=== PATIENT | male | born 1965 | race African-American/Black ===

== ENCOUNTER 2018-05-03 12:08 | Inpatient (IN) | payer OTHER ==
[~2018-05-03] VITALS: Ht 170.2 cm; Wt 105.4 kg
[~2018-05-03 12:08] MED LIST: ALBU2TAB4 PO; AMLO5TAB13 PO; ASPI81TA27 PO; DILT60TA27 PO; INSLANTI SC; IPRA1SOL3 IN; LACT10SO3 PO; LEVO500T21 PO; LISI40TA PO; METF-370 PO; OMEP20TA PO; PRE1T PO; TAMS0.4C36 PO
[2018-05-03] MEDS ORDERED: ALBUTEROL SULF 2.5 MG/0.5ML(0.5%) NEB SOLN HHN ONE (12:30)
[2018-05-03] MEDS ORDERED: methylPREDNISolone SOD SUCC 125 MG/2 ML VL IV ONE (12:30)
[2018-05-03] MEDS ORDERED: IPRATROPIUM BROM 0.5 MG/2.5ML INH SOL HHN ONE (12:30)
[2018-05-03 12:47] LABS: Basophils # (auto) 0.1 uL; Basophils % (auto) 0.8 % (0.0-2.0); Eosinophils # (auto) 0.2 uL; Eosinophils % (auto) 2.9 % (0.0-7.0); Hematocrit 41.9 % (41.0-53.0); Hemoglobin 14.7 g/dL (13.5-17.5); Lymphocytes # (auto) 1.1 uL; Lymphocytes % (auto) 17.9 % (10.0-50.0); Mean Corpuscular Hemoglobin 31.5 pg (28.0-32.0); Mean Corpuscular Hgb Conc. 35.1 g/dL (32.0-36.0); Mean Corpuscular Volume 89.7 fL (80.0-100.0); Monocytes # (auto) 0.6 uL; Monocytes % (auto) 8.9 % (0.0-12.0); Neutrophils # (auto) 4.3 uL; Neutrophils % (auto) 69.5 % (37.0-80.0); Nucleated Red Blood Cells % 0.1 %; Platelet Count (auto) 185 10^3/uL (140-450); Red Blood Cells 4.67 10^6/uL (4.5-5.90); White Blood Cell 6.2 10^3/uL (4.4-10.8)
[2018-05-03 13:35] LABS: Alanine Aminotransferase 15 U/L (16-61); Albumin 3.7 g/dL (3.4-5.0); Alkaline Phosphatase 61 U/L (45-117); Anion Gap 6 (5-15); Aspartate Aminotransferase 10 U/L (15-37); BUN/Creatinine Ratio 14.4; Bilirubin, Total 0.5 mg/dL (0.2-1.0); Blood Urea Nitrogen 16 mg/dL (7-18); Calcium 8.2 mg/dL (8.5-10.1); Carbon Dioxide 29 mmol/L (21-32); Chloride 107 mmol/L (98-107); GFR African American 90 mL/min; GFR Non-African American 74 mL/min; Glucose 88 mg/dL (74-106); Magnesium 2.5 mg/dL (1.6-2.6); Sodium 142 mmol/L (136-145); Total Protein 6.5 g/dL (6.4-8.2)
[2018-05-03] MEDS ORDERED: cloNIDine HCL 0.1 MG TAB PO PRN (15:45)
[2018-05-03] MEDS ORDERED: LACTULOSE 20Gm/30ML SOLN PO PRN (16:15)
[2018-05-03] MEDS ORDERED: DEXTROSE (50%) 50ML SYRG IV PRN (16:15)
[2018-05-03] MEDS: ONDANSETRON HCL 4 MG/2 ML VIAL IV PRN (17:16)
[2018-05-03] MEDS: MORPHINE SULF INJ 2 MG/ML SYRINGE 1ML IV PRN (17:16)
[2018-05-03] MEDS: ACCU-CHEK COMFORT CURVE STRIP VI SCH ×2 (17:25→23:23)
[2018-05-03] MEDS: InsuLIN REG 1unit/0.01ml Soln (100units/ml) SC SCH ×2 (17:31→23:23)
[2018-05-03] MEDS ORDERED: IPRATROPIUM BROM 0.5 MG/2.5ML INH SOL NEB ONE (18:00)
[2018-05-03] MEDS: SOTALOL HCL 80 MG TAB PO SCH (18:21)
[2018-05-03] MEDS: metFORMIN HYDROCHLORIDE 500 MG TAB PO SCH (18:21)
[2018-05-03] MEDS: ALBUTEROL SULF 2.5 MG/0.5ML(0.5%) NEB SOLN NEB SCH (19:12)
[2018-05-03 19:51] VITALS: BP 130/98
[2018-05-03 20:29] VITALS: BP 132/84
[2018-05-03] MEDS: methylPREDNISolone SOD SUCC 125 MG/2 ML VL IV SCH (22:15)
[2018-05-03] MEDS: HYDROcodone-ACET 10/325MG TAB PO PRN (23:34)
[2018-05-04] MEDS: ALBUTEROL SULF 2.5 MG/0.5ML(0.5%) NEB SOLN NEB SCH ×4 (01:52→19:02)
[2018-05-04 05:17] VITALS: BP 131/79
[2018-05-04] MEDS ORDERED: INSREG3 IV (06:18)
[2018-05-04] MEDS ORDERED: INSUINJ2 SC (06:18)
[2018-05-04] MEDS ORDERED: TAM04C PO (06:18)
[2018-05-04] MEDS ORDERED: SOTA80TA PO (06:19)
[2018-05-04] MEDS: InsuLIN REG 1unit/0.01ml Soln (100units/ml) SC SCH ×3 (07:09→17:00)
[2018-05-04] MEDS: amLODIPine BESYLATE 5 MG TAB PO SCH (07:09)
[2018-05-04] MEDS: INSULIN LANTUS (GLARGINE) 1 /0.01ml (100units/ml) SC SCH (07:09)
[2018-05-04] MEDS: ACCU-CHEK COMFORT CURVE STRIP VI SCH ×3 (07:10→17:00)
[2018-05-04] MEDS: TAMSULOSIN HYDROCHLORIDE 0.4 MG CAP PO SCH (08:44)
[2018-05-04] MEDS: ASPirin-EC 81 mg tab PO SCH (08:45)
[2018-05-04] MEDS: SOTALOL HCL 80 MG TAB PO SCH ×2 (08:45→17:32)
[2018-05-04] MEDS: metFORMIN HYDROCHLORIDE 500 MG TAB PO SCH ×2 (08:46→17:31)
[2018-05-04 09:00] VITALS: BP 126/77
[2018-05-04] MEDS: LISINOPRIL 20 MG TAB PO SCH (10:16)
[2018-05-04] MEDS: methylPREDNISolone SOD SUCC 125 MG/2 ML VL IV SCH (10:17)
[2018-05-04 13:00] VITALS: BP 129/75
[2018-05-04 17:00] VITALS: BP 128/76
[2018-05-04] MEDS: BUDESONIDE (INHALATION) 0.5 MG/2 ML NEB NEB SCH (19:02)
[2018-05-04] MEDS: HYDROcodone-ACET 10/325MG TAB PO PRN (20:38)
[2018-05-04 22:00] VITALS: BP 120/70
[2018-05-05] MEDS: methylPREDNISolone SOD SUCC 125 MG/2 ML VL IV SCH ×3 (00:10→22:06)
[2018-05-05] MEDS: ACCU-CHEK COMFORT CURVE STRIP VI SCH ×5 (00:11→22:07)
[2018-05-05] MEDS: InsuLIN REG 1unit/0.01ml Soln (100units/ml) SC SCH ×5 (00:11→22:07)
[2018-05-05] MEDS: ALBUTEROL SULF 2.5 MG/0.5ML(0.5%) NEB SOLN NEB SCH ×5 (00:32→23:56)
[2018-05-05 05:00] VITALS: BP 132/87
[2018-05-05] MEDS: BUDESONIDE (INHALATION) 0.5 MG/2 ML NEB NEB SCH ×2 (06:37→18:19)
[2018-05-05] MEDS: INSULIN LANTUS (GLARGINE) 1 /0.01ml (100units/ml) SC SCH (06:41)
[2018-05-05] MEDS: amLODIPine BESYLATE 5 MG TAB PO SCH (06:42)
[2018-05-05] MEDS: TAMSULOSIN HYDROCHLORIDE 0.4 MG CAP PO SCH (08:41)
[2018-05-05] MEDS: ASPirin-EC 81 mg tab PO SCH (08:41)
[2018-05-05] MEDS: metFORMIN HYDROCHLORIDE 500 MG TAB PO SCH ×2 (08:41→18:44)
[2018-05-05] MEDS: SOTALOL HCL 80 MG TAB PO SCH ×2 (08:42→18:49)
[2018-05-05 09:00] VITALS: BP 128/84
[2018-05-05] MEDS: LISINOPRIL 20 MG TAB PO SCH (10:24)
[2018-05-05 13:00] VITALS: BP 106/56
[2018-05-05] MEDS: NITROGLYCERIN 0.4 MG SL TAB SL PRN ×3 (16:38→16:56)
[2018-05-05 16:55] VITALS: BP 143/87
[2018-05-05] MEDS: MORPHINE SULF INJ 2 MG/ML SYRINGE 1ML IV PRN (17:08)
[2018-05-05 22:00] VITALS: BP 119/60
[2018-05-06 05:00] VITALS: BP 139/79
[2018-05-06] MEDS: ALBUTEROL SULF 2.5 MG/0.5ML(0.5%) NEB SOLN NEB SCH ×4 (06:02→19:15)
[2018-05-06] MEDS: BUDESONIDE (INHALATION) 0.5 MG/2 ML NEB NEB SCH ×2 (06:03→19:15)
[2018-05-06] MEDS: amLODIPine BESYLATE 5 MG TAB PO SCH (07:00)
[2018-05-06] MEDS: ACCU-CHEK COMFORT CURVE STRIP VI SCH ×4 (07:00→22:32)
[2018-05-06] MEDS: INSULIN LANTUS (GLARGINE) 1 /0.01ml (100units/ml) SC SCH (07:00)
[2018-05-06] MEDS: InsuLIN REG 1unit/0.01ml Soln (100units/ml) SC SCH ×4 (07:00→22:34)
[2018-05-06] MEDS: MEPERIDINE HCL (50 MG/ML) 1 ML VIAL IV PRN ×7 (07:33→18:26)
[2018-05-06] MEDS: SOTALOL HCL 80 MG TAB PO SCH ×2 (08:00→18:00)
[2018-05-06] MEDS: HYDROcodone-ACET 10/325MG TAB PO PRN ×3 (08:10→16:16)
[2018-05-06] MEDS ORDERED: ADENOSINE 84 MG in GIVE UN-DILUTED 0 ML IV ONE (08:30)
[2018-05-06 09:00] VITALS: BP 137/91
[2018-05-06 10:23] VITALS: BP 129/78
[2018-05-06] MEDS ORDERED: IPRATROPIUM BROM 0.5 MG/2.5ML INH SOL ONE (10:32)
[2018-05-06] MEDS: methylPREDNISolone SOD SUCC 125 MG/2 ML VL IV SCH ×2 (12:49→22:32)
[2018-05-06] MEDS: metFORMIN HYDROCHLORIDE 500 MG TAB PO SCH ×2 (12:49→18:00)
[2018-05-06] MEDS: TAMSULOSIN HYDROCHLORIDE 0.4 MG CAP PO SCH (12:50)
[2018-05-06] MEDS: ASPirin-EC 81 mg tab PO SCH (12:50)
[2018-05-06] MEDS: LISINOPRIL 20 MG TAB PO SCH (12:51)
[2018-05-06 13:00] VITALS: BP 148/94
[2018-05-06 17:00] VITALS: BP 129/85
[2018-05-06 22:00] VITALS: BP 140/73
[2018-05-07] MEDS: ALBUTEROL SULF 2.5 MG/0.5ML(0.5%) NEB SOLN NEB SCH ×5 (00:35→23:55)
[2018-05-07 05:00] VITALS: BP_SYST 106; BP_SYST 143; BP_DIAS 59; BP_DIAS 71
[2018-05-07 05:04] VITALS: BP 138/82
[2018-05-07 05:53] LABS: Hematocrit 42.6 % (41.0-53.0); Hemoglobin 14.9 g/dL (13.5-17.5); Mean Corpuscular Hemoglobin 31.3 pg (28.0-32.0); Mean Corpuscular Hgb Conc. 34.9 g/dL (32.0-36.0); Mean Corpuscular Volume 89.7 fL (80.0-100.0); Platelet Count (auto) 212 10^3/uL (140-450); Red Blood Cells 4.74 10^6/uL (4.5-5.90); Red Cell Distribution Width 13.7 % (11.8-14.3); White Blood Cell 13.1 10^3/uL (4.4-10.8)
[2018-05-07 05:57] LABS: Band Neutrophils % (manual) 0; Basophils % (manual) 0 (0.0-2.0); Blast Cells 0; Eosinophils % (manual) 0 (0-7); Metamyelocytes % 0; Myelocytes % 0; Promyelocytes % 0; Reactive Lymphocytes 0
[2018-05-07] MEDS: BUDESONIDE (INHALATION) 0.5 MG/2 ML NEB NEB SCH ×2 (06:00→18:12)
[2018-05-07] MEDS: INSULIN LANTUS (GLARGINE) 1 /0.01ml (100units/ml) SC SCH (06:23)
[2018-05-07] MEDS: amLODIPine BESYLATE 5 MG TAB PO SCH (06:23)
[2018-05-07] MEDS: InsuLIN REG 1unit/0.01ml Soln (100units/ml) SC SCH ×4 (06:23→22:00)
[2018-05-07] MEDS: ACCU-CHEK COMFORT CURVE STRIP VI SCH ×4 (06:24→21:51)
[2018-05-07 06:29] LABS: Anion Gap 3 (5-15); BUN/Creatinine Ratio 21.4; Blood Urea Nitrogen 24 mg/dL (7-18); Calcium 8.7 mg/dL (8.5-10.1); Carbon Dioxide 32 mmol/L (21-32); Chloride 103 mmol/L (98-107); GFR African American 89 mL/min; GFR Non-African American 73 mL/min; Glucose 162 mg/dL (74-106); Potassium 4.2 mmol/L (3.5-5.1); Sodium 138 mmol/L (136-145)
[2018-05-07] MEDS: HYDROcodone-ACET 10/325MG TAB PO PRN ×4 (06:30→18:01)
[2018-05-07 06:38] LABS: Lymphocytes % (manual) 3 (10.0-50.0); Monocytes % (manual) 4 (0-12)
[2018-05-07] MEDS: MEPERIDINE HCL (50 MG/ML) 1 ML VIAL IV PRN ×5 (07:20→18:47)
[2018-05-07] MEDS: SOTALOL HCL 80 MG TAB PO SCH ×2 (08:00→18:00)
[2018-05-07 08:59] VITALS: BP 139/83
[2018-05-07] MEDS: methylPREDNISolone SOD SUCC 125 MG/2 ML VL IV SCH ×2 (09:13→21:51)
[2018-05-07] MEDS: ASPirin-EC 81 mg tab PO SCH (09:14)
[2018-05-07] MEDS: TAMSULOSIN HYDROCHLORIDE 0.4 MG CAP PO SCH (09:14)
[2018-05-07] MEDS: metFORMIN HYDROCHLORIDE 500 MG TAB PO SCH ×2 (09:14→18:00)
[2018-05-07] MEDS: LISINOPRIL 20 MG TAB PO SCH (09:15)
[2018-05-07] MEDS: CARISOPRODOL 350 MG TAB PO PRN ×2 (10:45→18:01)
[2018-05-07 12:01] VITALS: BP 141/84
[2018-05-07 18:03] VITALS: BP 131/71
[2018-05-07 22:08] VITALS: BP 142/78
[2018-05-08] VITALS: BP 142/78
[2018-05-08 05:47] VITALS: BP 146/82
[2018-05-08] MEDS: ALBUTEROL SULF 2.5 MG/0.5ML(0.5%) NEB SOLN NEB SCH ×3 (06:06→18:25)
[2018-05-08] MEDS: BUDESONIDE (INHALATION) 0.5 MG/2 ML NEB NEB SCH ×2 (06:06→18:25)
[2018-05-08] MEDS: amLODIPine BESYLATE 5 MG TAB PO SCH ×2 (06:12→21:59)
[2018-05-08] MEDS: ACCU-CHEK COMFORT CURVE STRIP VI SCH ×4 (06:13→21:59)
[2018-05-08] MEDS: INSULIN LANTUS (GLARGINE) 1 /0.01ml (100units/ml) SC SCH ×2 (06:16→21:59)
[2018-05-08] MEDS: InsuLIN REG 1unit/0.01ml Soln (100units/ml) SC SCH ×5 (06:17→22:00)
[2018-05-08] MEDS: HYDROcodone-ACET 10/325MG TAB PO PRN ×2 (06:17→18:55)
[2018-05-08 08:00] VITALS: BP_SYST 146; BP_SYST 150; BP_DIAS 82; BP_DIAS 94
[2018-05-08] MEDS: SOTALOL HCL 80 MG TAB PO SCH ×2 (08:52→18:55)
[2018-05-08] MEDS: ASPirin-EC 81 mg tab PO SCH (08:52)
[2018-05-08] MEDS: TAMSULOSIN HYDROCHLORIDE 0.4 MG CAP PO SCH ×2 (08:53→10:21)
[2018-05-08] MEDS: metFORMIN HYDROCHLORIDE 500 MG TAB PO SCH ×2 (08:53→18:54)
[2018-05-08] MEDS: methylPREDNISolone SOD SUCC 125 MG/2 ML VL IV SCH ×2 (08:53→21:59)
[2018-05-08] MEDS: LISINOPRIL 20 MG TAB PO SCH (08:54)
[2018-05-08 12:01] VITALS: BP 117/66
[2018-05-08] MEDS: CARISOPRODOL 350 MG TAB PO PRN (21:58)
[2018-05-08] MEDS: MONTELUKAST SODIUM 10 MG TAB PO SCH (21:59)
[2018-05-08 22:00] VITALS: BP 133/71
[2018-05-09] MEDS: ALBUTEROL SULF 2.5 MG/0.5ML(0.5%) NEB SOLN NEB SCH ×5 (00:07→19:01)
[2018-05-09 05:00] VITALS: BP 131/82
[2018-05-09] MEDS: ACCU-CHEK COMFORT CURVE STRIP VI SCH ×4 (05:43→22:23)
[2018-05-09] MEDS: amLODIPine BESYLATE 5 MG TAB PO SCH (05:44)
[2018-05-09 06:27] LABS: Hematocrit 44.9 % (41.0-53.0); Hemoglobin 15.3 g/dL (13.5-17.5); Mean Corpuscular Hemoglobin 30.7 pg (28.0-32.0); Mean Corpuscular Volume 90.3 fL (80.0-100.0); Platelet Count (auto) 252 10^3/uL (140-450); Red Blood Cells 4.97 10^6/uL (4.5-5.90); Red Cell Distribution Width 13.6 % (11.8-14.3); White Blood Cell 13.2 10^3/uL (4.4-10.8)
[2018-05-09 06:37] LABS: INR 0.96 (0.9-1.15); Prothrombin Time 10.3 sec (9.27-12.13)
[2018-05-09 06:43] LABS: Basophils % (manual) 0 (0.0-2.0); Blast Cells 0; Eosinophils % (manual) 0 (0-7); Metamyelocytes % 0; Myelocytes % 0; Promyelocytes % 0; Reactive Lymphocytes 0
[2018-05-09 06:54] LABS: Calcium 8.2 mg/dL (8.5-10.1)
[2018-05-09 06:56] LABS: BUN/Creatinine Ratio 24.5
[2018-05-09] MEDS: BUDESONIDE (INHALATION) 0.5 MG/2 ML NEB NEB SCH ×2 (07:37→19:01)
[2018-05-09 07:40] LABS: Band Neutrophils % (manual) 1; Lymphocytes % (manual) 9 (10.0-50.0); Monocytes % (manual) 3 (0-12)
[2018-05-09 07:54] VITALS: BP 135/73
[2018-05-09] MEDS: SOTALOL HCL 80 MG TAB PO SCH ×2 (08:00→18:00)
[2018-05-09] MEDS: metFORMIN HYDROCHLORIDE 500 MG TAB PO SCH ×2 (08:00→17:31)
[2018-05-09] MEDS: ASPirin-EC 81 mg tab PO SCH (08:00)
[2018-05-09] MEDS: LORATADINE 10 MG TAB PO SCH (09:04)
[2018-05-09] MEDS: FLUTICASONE PROP NASAL SPR 0.05 % (50MCG) 16GM EACHNOSTRI SCH (09:05)
[2018-05-09] MEDS: LISINOPRIL 20 MG TAB PO SCH (09:05)
[2018-05-09] MEDS: methylPREDNISolone SOD SUCC 125 MG/2 ML VL IV SCH ×2 (09:06→22:22)
[2018-05-09] MEDS: InsuLIN REG 1unit/0.01ml Soln (100units/ml) SC SCH ×3 (11:30→22:23)
[2018-05-09 12:08] VITALS: BP 123/75
[2018-05-09] MEDS ORDERED: IODIXANOL 320MG/ML 100ML BTL IV ONE (16:32)
[2018-05-09] MEDS ORDERED: LIDOCAINE 2% (LOCAL ANESTH.) PF 5ml SDV ONE (16:32)
[2018-05-09 17:04] VITALS: BP 135/76
[2018-05-09] MEDS ORDERED: MIDAZOLAM HCL 1MG/1ML-2 ML VIAL ONE (17:13)
[2018-05-09] MEDS ORDERED: fentaNYL CITRATE 100 MCG/2 ML VL ONE (17:13)
[2018-05-09] MEDS: ONDANSETRON HCL 4 MG/2 ML VIAL IV PRN (20:23)
[2018-05-09] MEDS: MEPERIDINE HCL (50 MG/ML) 1 ML VIAL IV PRN (20:23)
[2018-05-09 22:00] VITALS: BP 128/72
[2018-05-09] MEDS: MONTELUKAST SODIUM 10 MG TAB PO SCH (22:23)
[2018-05-09 23:21] VITALS: BP 128/72
[2018-05-10] MEDS: ALBUTEROL SULF 2.5 MG/0.5ML(0.5%) NEB SOLN NEB SCH ×5 (00:41→23:47)
[2018-05-10] MEDS: ONDANSETRON HCL 4 MG/2 ML VIAL IV PRN ×2 (04:54→22:42)
[2018-05-10] MEDS: MEPERIDINE HCL (50 MG/ML) 1 ML VIAL IV PRN ×3 (04:57→22:46)
[2018-05-10 05:30] VITALS: BP 133/71
[2018-05-10] MEDS: InsuLIN REG 1unit/0.01ml Soln (100units/ml) SC SCH ×4 (06:15→22:23)
[2018-05-10] MEDS: INSULIN LANTUS (GLARGINE) 1 /0.01ml (100units/ml) SC SCH (06:16)
[2018-05-10] MEDS: ACCU-CHEK COMFORT CURVE STRIP VI SCH ×4 (06:16→22:23)
[2018-05-10] MEDS: BUDESONIDE (INHALATION) 0.5 MG/2 ML NEB NEB SCH ×2 (06:59→19:11)
[2018-05-10] MEDS: amLODIPine BESYLATE 5 MG TAB PO SCH (07:04)
[2018-05-10] MEDS: metFORMIN HYDROCHLORIDE 500 MG TAB PO SCH ×2 (08:00→16:21)
[2018-05-10] MEDS: SOTALOL HCL 80 MG TAB PO SCH ×2 (08:00→17:39)
[2018-05-10] MEDS: FLUTICASONE PROP NASAL SPR 0.05 % (50MCG) 16GM EACHNOSTRI SCH (08:51)
[2018-05-10] MEDS: methylPREDNISolone SOD SUCC 125 MG/2 ML VL IV SCH ×2 (08:53→21:15)
[2018-05-10] MEDS: LISINOPRIL 20 MG TAB PO SCH (08:55)
[2018-05-10] MEDS: LORATADINE 10 MG TAB PO SCH (08:55)
[2018-05-10] MEDS: ASPirin-EC 81 mg tab PO SCH (08:55)
[2018-05-10] MEDS: TAMSULOSIN HYDROCHLORIDE 0.4 MG CAP PO SCH (08:55)
[2018-05-10 09:00] VITALS: BP 142/84
[2018-05-10 13:00] VITALS: BP 113/65
[2018-05-10 17:52] VITALS: BP 132/83
[2018-05-10] MEDS: MONTELUKAST SODIUM 10 MG TAB PO SCH (21:15)
[2018-05-10 22:00] VITALS: BP 114/60
[2018-05-11] MEDS: MEPERIDINE HCL (50 MG/ML) 1 ML VIAL IV PRN ×3 (06:17→21:41)
[2018-05-11] MEDS: ONDANSETRON HCL 4 MG/2 ML VIAL IV PRN ×3 (06:21→21:41)
[2018-05-11] MEDS: amLODIPine BESYLATE 5 MG TAB PO SCH (06:22)
[2018-05-11] MEDS: INSULIN LANTUS (GLARGINE) 1 /0.01ml (100units/ml) SC SCH (06:23)
[2018-05-11] MEDS: InsuLIN REG 1unit/0.01ml Soln (100units/ml) SC SCH ×4 (06:23→21:42)
[2018-05-11] MEDS: ACCU-CHEK COMFORT CURVE STRIP VI SCH ×4 (06:23→22:18)
[2018-05-11] MEDS: BUDESONIDE (INHALATION) 0.5 MG/2 ML NEB NEB SCH ×2 (06:48→18:46)
[2018-05-11] MEDS: ALBUTEROL SULF 2.5 MG/0.5ML(0.5%) NEB SOLN NEB SCH ×4 (06:48→23:32)
[2018-05-11] MEDS: metFORMIN HYDROCHLORIDE 500 MG TAB PO SCH ×2 (08:32→18:03)
[2018-05-11] MEDS: SOTALOL HCL 80 MG TAB PO SCH ×2 (08:32→18:03)
[2018-05-11] MEDS: ASPirin-EC 81 mg tab PO SCH (08:33)
[2018-05-11] MEDS: TAMSULOSIN HYDROCHLORIDE 0.4 MG CAP PO SCH (08:33)
[2018-05-11 09:00] VITALS: BP 136/80
[2018-05-11] MEDS: LISINOPRIL 20 MG TAB PO SCH (10:20)
[2018-05-11] MEDS: methylPREDNISolone SOD SUCC 125 MG/2 ML VL IV SCH ×2 (10:21→21:40)
[2018-05-11] MEDS: FLUTICASONE PROP NASAL SPR 0.05 % (50MCG) 16GM EACHNOSTRI SCH (10:21)
[2018-05-11] MEDS: LORATADINE 10 MG TAB PO SCH (10:21)
[2018-05-11 13:00] VITALS: BP 115/65
[2018-05-11 17:00] VITALS: BP 140/70
[2018-05-11] MEDS: MONTELUKAST SODIUM 10 MG TAB PO SCH (21:40)
[2018-05-11 21:48] VITALS: BP 122/73
[2018-05-12] MEDS: MEPERIDINE HCL (50 MG/ML) 1 ML VIAL IV PRN ×4 (05:20→21:41)
[2018-05-12] MEDS: ONDANSETRON HCL 4 MG/2 ML VIAL IV PRN ×4 (05:20→21:41)
[2018-05-12] MEDS: BUDESONIDE (INHALATION) 0.5 MG/2 ML NEB NEB SCH ×2 (05:47→18:56)
[2018-05-12] MEDS: ALBUTEROL SULF 2.5 MG/0.5ML(0.5%) NEB SOLN NEB SCH ×3 (05:47→18:56)
[2018-05-12 05:57] VITALS: BP 131/79
[2018-05-12] MEDS: amLODIPine BESYLATE 5 MG TAB PO SCH (06:20)
[2018-05-12] MEDS: InsuLIN REG 1unit/0.01ml Soln (100units/ml) SC SCH ×4 (06:20→21:39)
[2018-05-12] MEDS: INSULIN LANTUS (GLARGINE) 1 /0.01ml (100units/ml) SC SCH (06:24)
[2018-05-12] MEDS: ACCU-CHEK COMFORT CURVE STRIP VI SCH ×4 (06:25→21:41)
[2018-05-12 08:31] VITALS: BP 144/76
[2018-05-12] MEDS: SOTALOL HCL 80 MG TAB PO SCH ×2 (08:41→18:00)
[2018-05-12] MEDS: ASPirin-EC 81 mg tab PO SCH (08:41)
[2018-05-12] MEDS: metFORMIN HYDROCHLORIDE 500 MG TAB PO SCH ×2 (08:42→18:01)
[2018-05-12] MEDS: TAMSULOSIN HYDROCHLORIDE 0.4 MG CAP PO SCH (08:42)
[2018-05-12] MEDS: FLUTICASONE PROP NASAL SPR 0.05 % (50MCG) 16GM EACHNOSTRI SCH (09:37)
[2018-05-12] MEDS: methylPREDNISolone SOD SUCC 125 MG/2 ML VL IV SCH ×2 (11:43→21:38)
[2018-05-12] MEDS: LISINOPRIL 20 MG TAB PO SCH (11:44)
[2018-05-12] MEDS: LORATADINE 10 MG TAB PO SCH (11:44)
[2018-05-12 12:00] VITALS: BP 136/81
[2018-05-12 16:57] VITALS: BP 105/60
[2018-05-12 17:11] VITALS: BP 105/60
[2018-05-12] MEDS: MONTELUKAST SODIUM 10 MG TAB PO SCH (21:38)
[2018-05-12 22:00] VITALS: BP 135/67
[2018-05-13] MEDS: ALBUTEROL SULF 2.5 MG/0.5ML(0.5%) NEB SOLN NEB SCH ×4 (00:25→19:40)
[2018-05-13 05:00] VITALS: BP 148/86
[2018-05-13] MEDS: BUDESONIDE (INHALATION) 0.5 MG/2 ML NEB NEB SCH ×2 (05:48→19:40)
[2018-05-13] MEDS: amLODIPine BESYLATE 5 MG TAB PO SCH (06:30)
[2018-05-13] MEDS: MEPERIDINE HCL (50 MG/ML) 1 ML VIAL IV PRN ×3 (06:31→21:41)
[2018-05-13] MEDS: ONDANSETRON HCL 4 MG/2 ML VIAL IV PRN ×3 (06:31→21:41)
[2018-05-13] MEDS: InsuLIN REG 1unit/0.01ml Soln (100units/ml) SC SCH ×4 (06:31→21:42)
[2018-05-13] MEDS: ACCU-CHEK COMFORT CURVE STRIP VI SCH ×4 (06:32→21:42)
[2018-05-13] MEDS: INSULIN LANTUS (GLARGINE) 1 /0.01ml (100units/ml) SC SCH (06:32)
[2018-05-13 08:30] VITALS: BP 155/92
[2018-05-13 08:31] VITALS: BP 155/92
[2018-05-13] MEDS: SOTALOL HCL 80 MG TAB PO SCH ×2 (09:04→17:37)
[2018-05-13] MEDS: TAMSULOSIN HYDROCHLORIDE 0.4 MG CAP PO SCH (09:04)
[2018-05-13] MEDS: metFORMIN HYDROCHLORIDE 500 MG TAB PO SCH ×2 (09:04→17:37)
[2018-05-13] MEDS: ASPirin-EC 81 mg tab PO SCH (09:05)
[2018-05-13] MEDS: LORATADINE 10 MG TAB PO SCH (10:00)
[2018-05-13] MEDS: methylPREDNISolone SOD SUCC 125 MG/2 ML VL IV SCH (10:00)
[2018-05-13] MEDS: LISINOPRIL 20 MG TAB PO SCH (10:01)
[2018-05-13] MEDS: HYDROcodone-ACET 10/325MG TAB PO PRN (10:02)
[2018-05-13] MEDS: FLUTICASONE PROP NASAL SPR 0.05 % (50MCG) 16GM EACHNOSTRI SCH (11:49)
[2018-05-13 12:55] VITALS: BP 98/67
[2018-05-13 17:05] VITALS: BP 145/79
[2018-05-13 21:36] VITALS: BP 130/77
[2018-05-13] MEDS: MONTELUKAST SODIUM 10 MG TAB PO SCH (21:40)
[2018-05-13] MEDS: methylPREDNISolone SOD SUCC 40 MG/ML VL IV SCH (21:41)
[2018-05-14] MEDS: ONDANSETRON HCL 4 MG/2 ML VIAL IV PRN ×2 (04:12→08:42)
[2018-05-14] MEDS: MEPERIDINE HCL (50 MG/ML) 1 ML VIAL IV PRN ×2 (04:12→08:43)
[2018-05-14 04:51] VITALS: BP 135/89
[2018-05-14] MEDS: amLODIPine BESYLATE 5 MG TAB PO SCH (06:24)
[2018-05-14] MEDS: INSULIN LANTUS (GLARGINE) 1 /0.01ml (100units/ml) SC SCH (06:25)
[2018-05-14] MEDS: InsuLIN REG 1unit/0.01ml Soln (100units/ml) SC SCH ×2 (06:25→12:05)
[2018-05-14] MEDS: ACCU-CHEK COMFORT CURVE STRIP VI SCH ×2 (06:25→12:05)
[2018-05-14] MEDS: BUDESONIDE (INHALATION) 0.5 MG/2 ML NEB NEB SCH (06:28)
[2018-05-14] MEDS: ALBUTEROL SULF 2.5 MG/0.5ML(0.5%) NEB SOLN NEB SCH ×3 (06:28→11:51)
[2018-05-14] MEDS: TAMSULOSIN HYDROCHLORIDE 0.4 MG CAP PO SCH (08:32)
[2018-05-14] MEDS: ASPirin-EC 81 mg tab PO SCH (08:32)
[2018-05-14] MEDS: metFORMIN HYDROCHLORIDE 500 MG TAB PO SCH (08:32)
[2018-05-14] MEDS: SOTALOL HCL 80 MG TAB PO SCH (08:34)
[2018-05-14 08:56] VITALS: BP 131/85
[2018-05-14] MEDS: methylPREDNISolone SOD SUCC 40 MG/ML VL IV SCH (09:59)
[2018-05-14] MEDS: LISINOPRIL 20 MG TAB PO SCH (09:59)
[2018-05-14] MEDS: LORATADINE 10 MG TAB PO SCH (09:59)
[2018-05-14] MEDS: FLUTICASONE PROP NASAL SPR 0.05 % (50MCG) 16GM EACHNOSTRI SCH (10:00)
[2018-05-14 13:00] VITALS: BP 138/87
[2018-05-14 14:04] VITALS: BP 135/89
== END 2018-05-14 15:30 | DRG 287 ==
LOC: EDBD 12:08 → ER 12:08 → EEVIPCON 12:09 → TELE 12:09 → TELE-E-ADS 19:55
PROVIDERS: ADMIT Internal Medicine; ATTEND Internal Medicine
PROC: 5A09357 Assistance with Respiratory Ventilation, Less than 24 Consecutive Hours, Continuous Positive Airway Pressure (ICD-10-PCS; 2018-05-04)
PROC: 5A09357 Assistance with Respiratory Ventilation, Less than 24 Consecutive Hours, Continuous Positive Airway Pressure (ICD-10-PCS; 2018-05-05)
PROC: 5A09357 Assistance with Respiratory Ventilation, Less than 24 Consecutive Hours, Continuous Positive Airway Pressure (ICD-10-PCS; 2018-05-08)
PROC: 4A023N7 Measurement of Cardiac Sampling and Pressure, Left Heart, Percutaneous Approach (ICD-10-PCS; principal; 2018-05-09)
PROC: B2111ZZ Fluoroscopy of Multiple Coronary Arteries using Low Osmolar Contrast (ICD-10-PCS; 2018-05-09)
PROC: B2151ZZ Fluoroscopy of Left Heart using Low Osmolar Contrast (ICD-10-PCS; 2018-05-09)
PROC: 5A09357 Assistance with Respiratory Ventilation, Less than 24 Consecutive Hours, Continuous Positive Airway Pressure (ICD-10-PCS; 2018-05-09)
PROC: B41F1ZZ Fluoroscopy of Right Lower Extremity Arteries using Low Osmolar Contrast (ICD-10-PCS; 2018-05-09)
PROC: 5A09357 Assistance with Respiratory Ventilation, Less than 24 Consecutive Hours, Continuous Positive Airway Pressure (ICD-10-PCS; 2018-05-11)
PROC: 5A09357 Assistance with Respiratory Ventilation, Less than 24 Consecutive Hours, Continuous Positive Airway Pressure (ICD-10-PCS; 2018-05-14)
DX: R07.89 Other chest pain (principal); J44.1 Chronic obstructive pulmonary disease with (acute) exacerbation; J45.901 Unspecified asthma with (acute) exacerbation; J44.0 Chronic obstructive pulmonary disease with (acute) lower respiratory infection; I10 Essential (primary) hypertension; E11.9 Type 2 diabetes mellitus without complications; E66.9 Obesity, unspecified; G47.30 Sleep apnea, unspecified; I48.91 Unspecified atrial fibrillation; J20.9 Acute bronchitis, unspecified; F17.210 Nicotine dependence, cigarettes, uncomplicated; Z95.0 Presence of cardiac pacemaker; Z83.3 Family history of diabetes mellitus; Z88.0 Allergy status to penicillin; Z79.899 Other long term (current) drug therapy; Z79.82 Long term (current) use of aspirin; Z90.49 Acquired absence of other specified parts of digestive tract; I25.2 Old myocardial infarction; Z82.49 Family history of ischemic heart disease and other diseases of the circulatory system; Z68.36 Body mass index [BMI] 36.0-36.9, adult
CPT/HCPCS: 36415; 71045; 71046; 78452; 80048; 80053; 82962; 83735; 83880; 84484; 85007; 85025; 85027; 85610; 85730; 93005; 93017; 94640; 94644; 94660; 94761; 96374; 96375; 99152; J0153; J1815; J2001; J2250; J2405; Q9967